=== PATIENT | female | born 1955 | race Caucasian/White ===

== ENCOUNTER 2021-01-04 08:33 | Inpatient (IN) ==
--- NOTE | 2020-12-29 10:33 | PAT Medication Instructions ---
Medication Instructions Date of Service December 29, 2020 Home Medications acetaminophen [Tylenol Extra Strength] 1,000 mg PO Q8H PRN [id number] [Fioricet] 1 tab PO Q6H PRN duloxetine [Cymbalta] 60 mg PO QAM ezetimibe [Zetia] 10 mg PO QAM famotidine 20 mg PO BID levothyroxine 88 mcg PO UD pregabalin [Lyrica] 50 mg PO BID zolpidem [Ambien CR] 12.5 mg PO HS DO NOT take the morning of surgery [id number]-[id number] [Fioricet] 1 tab PO Q6H PRN Take morning of surgery With a small sip of water, OTHERWISE NOTHING TO EAT OR DRINK AFTER MIDNIGHT: acetaminophen [Tylenol Extra Strength] 1,000 mg PO Q8H PRN (if needed, may be taken up to four hours before surgery) duloxetine [Cymbalta] 60 mg PO QAM ezetimibe [Zetia] 10 mg PO QAM famotidine 20 mg PO BID levothyroxine 88 mcg PO UD pregabalin [Lyrica] 50 mg PO BID Take evening before surgery acetaminophen [Tylenol Extra Strength] 1,000 mg PO Q8H PRN (if needed) [id number] [Fioricet] 1 tab PO Q6H PRN (if needed) famotidine 20 mg PO BID pregabalin [Lyrica] 50 mg PO BID zolpidem [Ambien CR] 12.5 mg PO HS Other Notes If you have any questions please call us at [phone] or [phone] or [phone] or [phone]
--- NOTE | 2020-12-30 11:30 | Anesthesiology Consultation ---
Date of Service December 30, 2020 Assessment & Plan (1) Encounter for pre-operative examination: COVID Status: As of 12/30 assessment, patient denies travel to endemic area, known exposure/sick contacts, or symptoms of COVID19. Patient instructed that they and their household members must follow strict social distancing guidelines, wear a mask in public and avoid travel/events/gatherings for 14 days prior to surgery. Preoperative COVID19 testing completed 12/30 at [facility] [place] Patient made aware to self-isolate as much as possible between COVID testing and surgery. Patient is fully vaccinated. Chart Review Chart Review: Acceptable Risk for Surgery (pending surgeon ordered PCP clearance) and Patient seen in Pre Admission Testing Teaching & Discussion Instructed NPO after midnight before surgery, except medications with 15 cc of water. Medication instructions provided according to the PAT guidelines. History Surgery Operation Date: 01/04/21 13:40 Proposed Procedures p Right Total Knee Arthroplasty - Baldomero Mason DO Height/Weight Height: 5 ft Weight: 67.7 kg Allergies Allergy/AdvReac Type Severity Reaction Status Date / Time carbamazepine [From Tegretol] Allergy Intermediate Hives Verified 12/15/20 14:33 Penicillins Allergy Intermediate Hives Verified 12/15/20 14:33 Medications Home Medications Medication Instructions Recorded Confirmed Last Taken acetaminophen [Tylenol Extra 1,000 mg PO Q8H PRN 12/15/20 12/15/20 Unknown Strength] [id number]-zijnmyoqgexsm-updh 1 tab PO Q6H PRN 12/15/20 12/15/20 Unknown [Fioricet] duloxetine [Cymbalta] 60 mg PO QAM 12/15/20 12/15/20 Unknown ezetimibe [Zetia] 10 mg PO QAM 12/15/20 12/15/20 Unknown famotidine 20 mg PO BID 12/15/20 12/15/20 Unknown levothyroxine 88 mcg PO UD 12/15/20 12/15/20 Unknown pregabalin [Lyrica] 50 mg PO BID 12/15/20 12/15/20 Unknown zolpidem [Ambien CR] 12.5 mg PO HS 12/15/20 12/15/20 Unknown Past Medical History Medical History (Updated 12/30/20 @ 11:33 by Syd Feldman) Fibromyalgia GERD (gastroesophageal reflux disease) History of kidney cancer s/p L nephrectomy Hyperlipidemia Hypothyroidism Lumbar herniated disc Migraine Optic neuritis BOTH EYES Osteoarthritis Sciatica RT AND LEFT SIDE Spinal stenosis Trigeminal neuralgia Exercise / Class Metabolic Activity II 4-5 Yardwork/Stairs/Walk up hill Past Family History Family History (Updated 12/15/20 @ 14:47 by Amira Hernandez RN) Sister Family history of diabetes mellitus Brother Family history of diabetes mellitus Past Surgical History Surgical History (Updated 12/30/20 @ 11:23 by Syd Feldman) Abdominal lump REMOVED (SCAR TISSUE FROM NEPHRECTOMY AND HYSTERECTOMY) VIA EXPLORATORY LAPAROSCOPY Family history of reaction to anesthesia SON-NAUSEA History of appendectomy History of colonoscopy History of esophagogastroduodenoscopy (EGD) History of left nephrectomy due to malignancy History of repair of rotator cuff LEFT History of tooth extraction Hx of breast reduction, elective Hx of lumbar discectomy Hx of total hysterectomy Nausea and vomiting after administration of anesthetic agent Past Anesthesia History No Hx of Anesthesia Complications (other than PONV) and No Family Hx of Anes thesia Complications (other than PONV) History of PONV History of PONV and Hx of Motion Sickness Social History Smoking Status: Never smoker Do You Dip or Chew Tobacco: No Hx Alcohol Use: No Hx Substance Use: No Review of Systems Pt denies any recent chest pain, shortness of breath, palpitations, cough, fever, URI. +reflux daily despite Pepcid Physical Exam Vital Signs BP: 111/71 P: 61bpm SPO2: 99% RA T: 97.7 F R: 16 ENMT Mouth: no dental restorations, no chipped teeth and no loose teeth Thyromental Distance: > or= 3.5 Finger Breadths (3.5) Mallampati Class: III Pt has chronically "sore" teeth and gums from trigeminal neuralgia. Neck normal visual inspection and + limited neck extension (pain with moderate extension) Respiratory normal respiratory effort, lungs clear to auscultation Cardiovascular RRR, no murmur, no edema Testing Laboratory Results 12/30/20 11:09 12/30/20 11:09 PT 9.5 Seconds (9.0-12.0) 12/30/20 11:09 INR 0.9 (0.9-1.1) 12/30/20 11:09 APTT 23.6 Seconds (21.0-31.0) 12/30/20 11:09 Hemoglobin A1c 5.8 % (4.5-5.6) H 12/30/20 11:09 Urine Color Yellow 12/30/20 11:09 Urine Appearance Clear (Clear) 12/30/20 11:09 Urine pH 6.0 (4.5-7.5) 12/30/20 11:09 Ur Specific [place] 1.012 (1.000-1.030) 12/30/20 11:09 Urine Protein Negative (Negative) 12/30/20 11:09 Urine Glucose (UA) Negative (Negative) 12/30/20 11:09 Urine Ketones Negative (Negative) 12/30/20 11:09 Urine Nitrite Negative (Negative) 12/30/20 11:09 Ur Leukocyte Esterase Trace (Negative) H 12/30/20 11:09 Urine WBC (Auto) 0 /hpf (0-5) 12/30/20 11:09 Urine RBC (Auto) 0-4 /hpf (0-4) 12/30/20 11:09 U Hyaline Cast (Auto) 1-5 /lpf (0-5) 12/30/20 11:09 U Epithel Cells (Auto) 5-10 /lpf (0-5) H 12/30/20 11:09 Urine Bacteria (Auto) Negative (Negative) 12/30/20 11:09 Blood Type A Positive 12/30/20 11:09 Antibody Screen NEGATIVE 12/30/20 11:09 Electrocardiogram Date: 12/30/20 Findings: + SB @ (59bpm) Chest X-Ray Date: 12/30/20 Findings: + NAD
[2020-12-30 11:42] LABS: Basophils # (auto) 0.07 K/uL (0-0.2); Basophils % (auto) 1.4 %; Eosinophils # (auto) 0.26 K/uL (0-0.5); Eosinophils % (auto) 5.2 %; Hematocrit (blood only) 39.6 % (37-47); Hemoglobin 12.8 g/dL (12.0-16.0); Immature Granulocytes # (auto) 0.01 K/uL (0.00-0.02); Immature Granulocytes % (auto) 0.2 %; Mean Corpuscular Hgb Conc 32.3 g/dL (32-36); Mean Corpuscular Volume 89.6 fL (80-100); Mean Platelet Volume 10.1 fL (7.4-10.4); Monocytes # (auto) 0.39 K/uL (0.11-0.59); Monocytes % (auto) 7.8 %; Neutrophils # (auto) 2.47 K/uL (1.4-6.5); Neutrophils % (auto) 49.4 %; Platelet Count 231 K/uL (130-400); RDW Coefficient of Variation 13.7 % (11.5-14.5); RDW Standard Deviation 45.2 fL (36.4-46.3); Red Blood Count 4.42 M/uL (4.2-5.4)
[2020-12-30 11:48] LABS: Appearance Urine Clear (Clear); Bacteria Urine Automated Negative (Negative); Bilirubin Urine Negative (Negative); Blood Urine Negative (Negative); Color Urine Yellow; Glucose Urine UA Negative (Negative); Ketones Urine Negative (Negative); Leukocyte Esterase Urine Trace (Negative); Nitrite Urine Negative (Negative); Protein Urine Negative (Negative); RBC Urine Automated 0-4 /hpf (0-4); Specific Gravity Urine 1.012 (1.000-1.030); Urobilinogen Urine Negative (Negative); WBC Urine Automated 0 /hpf (0-5)
[2020-12-30 11:51] LABS: Estimated Average Glucose 120 mg/dl; Hemoglobin A1C 5.8 % (4.5-5.6)
[2020-12-30 12:15] LABS: INR 0.9 (0.9-1.1); Partial Thromboplastin Ratio 0.9; Partial Thromboplastin Time 23.6 Seconds (21.0-31.0); Prothrombin Time 9.5 Seconds (9.0-12.0)
--- NOTE | 2020-12-30 12:15 | XRay Report ---
XR chest Pre-admission PA/Lat HISTORY: Preop. COMPARISON: None. FINDINGS: The lungs are clear. Cardiac silhouette is normal in size. No pleural effusions. No pneumot horax. Prior cholecystectomy. IMPRESSION: No acute process. ACT 112: Negative or not required by law. Electronically signed by: Ken Way M.D. 12/30/2020 12:14 PM
[2020-12-30 12:49] LABS: Albumin Level 3.4 gm/dl (3.4-5.0); BUN Creatinine Ratio 19.4 (10-20); Calcium 8.6 mg/dl (8.5-10.1); Est GFR (African American) 73.9; Est GFR (Non-African American) 63.7; Potassium 4.1 mmol/L (3.5-5.1)
--- NOTE | 2020-12-30 13:56 | Electrocardiogram Report ---
Test Reason : Blood Pressure : / mmHG Vent. Rate : 059 BPM Atrial Rate : 059 BPM P-R Int : 174 ms QRS Dur : 076 ms QT Int : 438 ms P-R-T Axes : 065 061 079 degrees QTc Int : 433 ms Sinus bradycardia Otherwise normal ECG No previous ECGs available Confirmed by Jose Carlos Vazquez ([id number]) on 12/30/2020 1:56:22 PM Referred By: Baldomero Mason Confirmed By:Haroldo Vazquez
--- NOTE | 2021-01-02 08:38 | History & Physical Report ---
Date of Service January 04, 2021 Assessment & Plan (1) Degenerative joint disease of knee, right: I have indicated the patient for right total knee replacement. The risks, benefits and complications of surgery were explained to the patient which include but not limited to infection, acute blood loss, DVT/PE, injury to nerves, vessels, bone, soft tissue, arthrofibrosis, chronic pain, failure of the prosthesis, knee dislocation, leg length discrepancy, need for additional surgery, cardiac and pulmonary events and . The patient wished to proceed with surgery and informed consent was obtained at this time. We will plan for 81mg ASA BID post-operatively for DVT prophylaxis. Upon discharge the patient will be discharged home with home health services. Appropriate clearances by PC P were obtained. The patient is asymptomatic for UTI. History of Present Illness Chief Complaint: Right knee pain/DJD Primary Care Provider: Vasu Brewster The patient is a 65 year old female who presents with complaints of severe right knee pain and DJD. The patient has failed outpatient conservative treatments to this point which included NSAIDs, IA corticosteroid injection, home exercise/walking program. The patient's pain and limited function have progressed to the point where they severely hinder their activities of daily living and they no longer tolerate exercise programs. They are requesting to proceed with total knee replacement surgery. Allergies Allergy/AdvReac Type Severity Reaction Status Date / Time carbamazepine [From Tegretol] Allergy Intermediate Hives Verified 01/04/21 09:11 Penicillins Allergy Intermediate Hives Verified 01/04/21 09:11 Home Medications Medication Instructions Recorded Confirmed Type acetaminophen [Tylenol Extra 1,000 mg PO Q8H PRN 12/15/20 12/15/20 History Strength] [id number]-skkkpcglzbzdk-yclc 1 tab PO Q6H PRN 12/15/20 12/15/20 History [Fioricet] duloxetine [Cymbalta] 60 mg PO QAM 12/15/20 12/15/20 History ezetimibe [Zetia] 10 mg PO QAM 12/15/20 12/15/20 History famotidine 20 mg PO BID 12/15/20 12/15/20 History levothyroxine 88 mcg PO UD 12/15/20 12/15/20 History pregabalin [Lyrica] 50 mg PO BID 12/15/20 12/15/20 History zolpidem [Ambien CR] 12.5 mg PO HS 12/15/20 12/15/20 History Past Med/Surg History Medical History Fibromyalgia GERD (gastroesophageal reflux disease) History of kidney cancer s/p L nephrectomy Hyperlipidemia Hypothyroidism Lumbar herniated disc Migraine Optic neuritis BOTH EYES Osteoarthritis Sciatica RT AND LEFT SIDE Spinal stenosis Trigeminal neuralgia Surgical History Abdominal lump REMOVED (SCAR TISSUE FROM NEPHRECTOMY AND HYSTERECTOMY) VIA EXPLORATORY LAPAROSCOPY Family history of reaction to anesthesia SON-NAUSEA History of appendectomy History of colonoscopy History of esophagogastroduodenoscopy (EGD) History of left nephrectomy due to malignancy History of repair of rotator cuff LEFT History of tooth extraction Hx of breast reduction, elective Hx of lumbar discectomy Hx of total hysterectomy Nausea and vomiting after administration of anesthetic agent Family History Sister Family history of diabetes mellitus Brother Family history of diabetes mellitus Social History Smoking Status: Never smoker Second Hand Exposure: No; Do You Dip or Chew Tobacco: No; Hx Alcohol Use: No Hx Substance Use: No Preferred Language: Citizen Of [place] Lamination Inspector Required: No Beliefs That Will Affect Care: None Current Living Situation: Spouse Feels Safe at Home: Yes Safety Concerns: Feels Safe At This Time Assistive Devices: Glasses Review of Systems Review of Systems: All systems reviewed & are unremarkable except as noted in HPI & below Constitutional: as per Subjective / HPI Physical Exam Physical Exam: RLE NVSI +EHL/FHL/TA/GS SILT grossly, +2 DP pulse, compartments soft NT, limited painful ROM, 0-110 degrees, +crepitus Constitutional: WD/WN, vitals as above Eyes: PERRL, conjunctivae normal, anicteric sclerae ENMT: external ear and nose normal, oropharynx normal Neck: trachea midline, no thyromegaly Respiratory: normal respiratory effort, lungs clear to auscultation Cardiovascular: RRR, no murmur, no edema Gastrointestinal (Abdomen): normal bowel sounds, soft, nontender, no hepatosplenomegaly Musculoskeletal: no cyanosis or clubbing, extremities motor strength 5/5 Skin: no rashes, warm and dry Neurologic: patellar DTR's 2+ bilat, sensation intact Psychiatric: A+Ox3, euthymic affect Lymphatic: no cervical or axillary lymphadenopathy Results & Data Results & Data ([facility]) Diagnostic Findings Multiple views of the knee demonstrates severe tricompartmental DJD with c omplete loss of the medial joint space. +osteophytes, +sclerosis, +subchondral cysts. Pre Admission Testing Addendum Laboratory Results 12/30/20 11:09 12/30/20 11:09 PT 9.5 Seconds (9.0-12.0) 12/30/20 11:09 INR 0.9 (0.9-1.1) 12/30/20 11:09 APTT 23.6 Seconds (21.0-31.0) 12/30/20 11:09 Hemoglobin A1c 5.8 % (4.5-5.6) H 12/30/20 11:09 Urine Color Yellow 12/30/20 11:09 Urine Appearance Clear (Clear) 12/30/20 11:09 Urine pH 6.0 (4.5-7.5) 12/30/20 11:09 Ur Specific [place] 1.012 (1.000-1.030) 12/30/20 11:09 Urine Protein Negative (Negative) 12/30/20 11:09 Urine Glucose (UA) Negative (Negative) 12/30/20 11:09 Urine Ketones Negative (Negative) 12/30/20 11:09 Urine Nitrite Negative (Negative) 12/30/20 11:09 Ur Leukocyte Esterase Trace (Negative) H 12/30/20 11:09 Urine WBC (Auto) 0 /hpf (0-5) 12/30/20 11:09 Urine RBC (Auto) 0-4 /hpf (0-4) 12/30/20 11:09 U Hyaline Cast (Auto) 1-5 /lpf (0-5) 12/30/20 11:09 U Epithel Cells (Auto) 5-10 /lpf (0-5) H 12/30/20 11:09 Urine Bacteria (Auto) Negative (Negative) 12/30/20 11:09 Blood Type A Positive 12/30/20 11:09 Antibody Screen NEGATIVE 12/30/20 11:09 03/24/21 11:09 Urine Culture - Final Urine,Clean Catch More than three types of organisms present, all moderate counts mixed probable skin shonna. No further identifications or sensitivities to follow.
[~2021-01-04 08:33] MED LIST: ACETAMINOPHEN 500 MG TAB PO SCH; BUPIVACAINE 0.5 % 5 MG/1 ML PF 10ML VIAL ONE; CLINDAMYCIN 600 MG/54 ML BAG IV SCH; CeleBREX 200 MG CAP PO SCH; FAMOTIDINE 20 MG TAB PO SCH; LR 500ML BOLUS, THEN 15ML/HR IV SCH; METOCLOPRAMIDE HCL 10 MG TABLET PO SCH; ROPIVACAINE 0.5% 5 MG/ML 30 ML VIAL ONE; ROPIVACAINE 0.5% HCL/PF 150 MG, BUPIVACAINE 0.75% MPF 20 ML, EPINEPHrine 30MG/30ML (OR ... INFIL SCH; TRANEXAMIC ACID 1,000 MG **IV Intra-op IV SCH; TRANEXAMIC ACID 1,000 MG **IV Pre-op IV SCH; dexAMETHasone 4 MG TAB PO SCH
--- NOTE | 2021-01-04 09:15 | History & Physical Bridge Note ---
Date of Service January 04, 2021 History & Physical Bridge Note I have examined the patient, reviewed the History & Physical and in the interval since the performance of the History & Physical I have noted the following changes of clinical significance: no changes noted
[2021-01-04] MEDS ORDERED: CLINDAMYCIN 600 MG/54 ML D5W IV ONE (09:23)
[2021-01-04] MEDS ORDERED: fentaNYL citrate 100 MCG/2 ML VIAL ONE (09:26)
[2021-01-04] MEDS ORDERED: MIDAZOLAM HCL 1 MG/ML 2ML VIAL ONE ×2 (09:26→10:51)
[2021-01-04] MEDS ORDERED: HYDROmorphone INJ 2 MG/ML SYR/VIAL IV PRN (10:23)
[2021-01-04] MEDS ORDERED: ePHEDrine sulfate 50 MG/ML AMP IV PRN (10:23)
[2021-01-04] MEDS ORDERED: ONDANSETRON INJ 2 MG/ML 2 ML VIAL IV PRN ×2 (10:23→15:42)
[2021-01-04] MEDS ORDERED: fentaNYL citrate 100 MCG/2 ML VIAL IV PRN (10:23)
[2021-01-04] MEDS ORDERED: ATROPINE SULFATE 0.1 MG/ML 10ML SYR IV PRN (10:23)
[2021-01-04] MEDS ORDERED: BACITRACIN INJ 50,000 UNIT VIAL ONE (10:47)
[2021-01-04] MEDS ORDERED: ORTHO JOINT ANESTHETIC ONE (10:47)
[2021-01-04] MEDS ORDERED: LIDOCAINE HCL 2% 2 ML VIAL/AMP(20MG/ML) INFIL ONE (11:09)
[2021-01-04] MEDS ORDERED: PROPOFOL IV EMULSION 10 MG/ML 20 ML VIAL IV ONE (11:09)
[2021-01-04] MEDS ORDERED: ONDANSETRON INJ 2 MG/ML 2 ML VIAL ONE (11:09)
[2021-01-04] MEDS ORDERED: ePHEDrine sulfate 50 MG/ML SYR ONE (11:14)
[2021-01-04] MEDS ORDERED: KETAMINE 50 MG/5 ML SYRINGE ONE (11:17)
[2021-01-04] MEDS ORDERED: PHENYLEPHRINE 100MCG/ML 5ML SYR ONE (11:25)
--- NOTE | 2021-01-04 12:16 | Post Operative Brief Note ---
Immediate Post Op Note v1 Date of Surgery January 04, 2021 Pre & Post Diagnosis Operation Date: 01/04/21 11:00 Pre-Op Diagnosis: Unilateral Primary Osteoarthritis Knee Right Post-Op Diagnosis: Unilateral Primary Osteoarthritis Knee Right I identified the patient and participated in the time-out.: Yes Procedure Operation Date: 01/04/21 11:00 Actual Procedures p Right Total Knee Arthroplasty(Right) - Baldomero Mason DO Surgeon Baldomero Mason DO Gasoline Engine Inspector Ghassan Waggoner Estimated Blood Loss 75 Findings Consistent with Post-Op Diagnosis Fluids See anesthesia report Specimens Proximal tibia and distal femur bone fragments Anesthesia Type Spinal MAC Complications none Disposition Disposition: Recovery Room Overlapping Procedure I was present for: the critical portions of procedure. I was immediately available: during the entire case. Back up surgeon: was not required during procedure.
--- NOTE | 2021-01-04 12:18 | Operative Report ---
Post Operative Report Pre & Post Diagnosis Operation Date: 01/04/21 11:00 Pre-Op Diagnosis: Unilateral Primary Osteoarthritis Knee Right Post-Op Diagnosis: Unilateral Primary Osteoarthritis Knee Right I identified the patient and participated in the time-out.: Yes Procedure Operation Date: 01/04/21 11:00 Actual Procedures p Right Total Knee Arthroplasty(Right) - Baldomero Mason DO Surgeon Baldomero Mason, Optical Model Maker And Tester Ghassan Waggoner Estimated Blood Loss 75 Findings Consistent with Post-Op Diagnosis Fluids See anesthesia report Specimens Proximal tibia and distal femur bone fragment Anesthesia Type Spinal MAC Disposition Disposition: Recovery Room Indications The patient is a 62-year-old female presents with long history of severe right knee tricompartmental DJD and failed outpatient conservative treatments including NSAIDs, bracing, injections and home walking/exercise program. The patient's symptoms have progressed to the point where it has been difficult to perform normal activities of daily living. I have indicated the patient for a right total knee arthroplasty, the risks and benefits and complications of the procedure include but are not limited to infection bleeding damage to bone, nerves, vessels, surrounding soft tissue, blood clots, loss of function, leg length discrepancy, dislocation, failure of the components, need for additional surgery and . The patient wished to proceed with surgery at this time and informed consent was obtained. Appropriate clearances were obtained. Description of Procedure COMPONENTS USED: Sandra [employer]omet knee system: Femur size 5 narrow, Tibia size C, Tibial articulating surface 10 PS, Patella 29 Following induction of spinal anesthesia, a tourniquet was applied to the proximal aspect of the thigh and the patient's right leg was prepped and draped in the usual sterile manner. A timeout was performed, patient identified and site michael confirmed. Appropriate pre-operative IV antibiotics were given. The limb was exsanguinated with an Esmarch bandage and tourniquet was inflated to 300 mmHg. A longitudinal midline incision was made over the anterior knee. Subcutaneous tissue was sharply dissected down to fascia. Electrocautery was used for hemostasis. Next a parapatellar arthrotomy was performed. Patella was everted and the knee was flexed. A Riley retractor was used to expose the synovium above on the anterior aspect of the femur and removed down to bone. Next, the anterior fat pad was removed to aid in visualization. The medial face of the tibia was cleared of soft tissue first with a Bovie and a frank elevator. This tissue was retracted posteriorly using a blunt Hohmann. Next, the extra-medullary tibial cutting guide was placed to the anterior aspect of the tibia. The tibia resection level was set taking 2mm from the defective tibial condyle. Resection depth was once again confirmed with noel wing. The medial and lateral collateral ligament was protected with two Hohmann retractors. The tibia guide was removed and proximal tibial bone fragment removed utilizing straight osteotome, electrocautery and Taylor. Next, the distal femur intramedullary canal was accessed utilizing the step drill. The intramedullary distal femur cutting guide was placed into the canal and pinned into place. The distal femur was cut on the 5 degree setting. Next the cutting guide was removed and the femur was sized. Care was taken to ensure appropriate sandwich counter attendant all rotation and 3 degree holes were drilled. A size 5 4-in-1 cutting block was placed on the distal end of the femur and secured into place with two short headed screws. Two bent Hohmann retractors were placed to protect the medial and lateral collateral ligaments. The oscillating saw was used to cut anterior, posterior, anterior chamfer and posterior chamfer. The four and one cutting block was removed and bone fragments excised. Laminar belt line feeder was placed laterally and the ACL and PCL were removed followed by the medial meniscus and posterior medial osteophytes. Aquamantys was utilized for any posterior medial bleeders and Orthomix injected into the po sterior medial capsule. A laminar belt line feeder was then placed in the medial compartment and the lateral meniscus and posterior osteophytes were removed. Aquamantys was utilized for any posterior lateral bleeders and Orthomix injected into the posterior lateral capsule. Next, drop allen and spacer block were placed with the leg in flexion and extension to assess alignment and flexion/extension gaps. Next, the proximal tibia was assessed and two bent Hohmans were placed medial and lateral to aid in visualization. The appropriate tibia size and rotation was selected and a size C tibial plate was pinned into place with appropriate rotation. Preparation of the tibia was completed utilizing the matching tibial drill and broach. I then turned my attention back to the distal femur in a trial femoral component was impacted into place. Appropriate femoral width was assessed and selected. Next the femur PS box cut guide was placed and cut made with the reciprocal saw and the PS box provisional placed. A trial size 10 PS tibia articular tray was placed and varus-valgus balance assessed in 0 degrees of extension and 30, 60 and 90 degrees of flexion. A final tibial articular surface size 10 PS was chosen. Assess was gained to the patella and caliper utilized to measure width. The patella reamer was utilized and remaining bone removed with oscillating saw. A size 29 mm patella button was selected and the patella pegs drilled. Trial patella button was placed and tracking was assessed. The knee was found to be well balanced, well aligned with excellent patella tracking. The trials were removed and final components were obtained and assembled. The knee was irrigated copiously with sterile saline solution mixed with bacitracin. Access to the proximal tibia was once again obtained utilizing to the Hohmans and the proximal tibia and distal femur were dried with lap sponges. The final components were cemented into place and all excess cement was removed. A trial tibial articular surface was placed while cemented hardened. Knee stability was once again assessed and the final component inserted. A Betadine soak was performed. After 3 minutes, the knee was once more irrigated with copious sterile saline solution with bacitracin. The knee was injected with the remaining Orthomix which includes a combination of Ropivicaine 0.5% 150mg, Bupivicaine 0.5%/Epinephrine 1:200,000 30ml, Toradol 30mg, Dexamethasone 4mg, Ketamine 10mg, Clonidine 100mcg and NSS 30ml solution. The capsulotomy was closed with #1 Vicryl followed by subcutaneous closure with 2-0 Vicryl suture and the skin was closed with alexander. A sterile dry dressing was applied which included pankaj incisional VAC, web roll and Ignacio wrap. Tourniquet was deflated at 73 minutes. The patient tolerated the procedure well and was taken to the PACU in stable condition. Due to the complex nature of the procedure, the entire surgery was performed with the operational assistance of Ghassan Waggoner PA-C. The after school program assistant, under direct supervision, was involved in the actual performance of all aspects of the surgical procedure including patient positioning, hemostasis, tissue retraction, instrument management and wound closure. I attest to the content of the Intraoperative Record and any orders documented therein. Any exceptions are noted below.
--- NOTE | 2021-01-04 13:45 | XRay Report ---
RIGHT KNEE 2 VIEWS History: Right total knee arthroplasty. Degenerative arthritis. Postop. FINDINGS: The patient is status post a right total knee arthroplasty. The hardware is intact. No frac ture or dislocation. Skin alexander are in place. IMPRESSION: Right total knee arthroplasty. No evidence for hardware complication. ACT 112: Negative or not required by law. Electronically signed by: Ken Way M.D. 01/04/2021 1:44 PM
--- NOTE | 2021-01-04 14:02 | Anesthesiology Progress Note ---
Date of Service January 04, 2021 Anesthesia Post Procedure Vital Signs Vital Signs: Temp Pulse Pulse Resp BP Pulse Ox 01/04/21 14:00 68 14 100/50 L 93 01/04/21 13:45 63 15 107/63 94 01/04/21 13:30 68 20 108/61 94 01/04/21 13:20 36.6 C 73 19 98/64 L 94 01/04/21 13:10 36.6 C 80 18 94/55 L 93 01/04/21 13:00 73 20 96/57 L 96 01/04/21 12:50 82 16 103/58 L 97 01/04/21 12:44 36.6 C 82 16 107/55 L 95 01/04/21 10:05 36.8 C 64 18 121/69 97 01/04/21 09:03 36.8 C 61 18 126/69 98 Pain Intensity Right Knee: Pain Intensity: 0 Transfer of Care Handoff Completed per policy Notes Mental Status: alert / awake / arousable and participated in evaluation Patient Amnestic to Procedure: Yes Nausea / Vomiting: adequately controlled Pain: adequately controlled Airway Patency, RR, SpO2: stable & adequate BP & HR: stable & adequate Hydration State: stable & adequate Neuraxial Anesthesia: was administered and sensory block is resolving Anesthetic Complications: no major complications apparent
[2021-01-04] MEDS ORDERED: NALOXONE HCL 0.4 MG/1 ML VIAL/CARP IV PRN (15:42)
[2021-01-04] MEDS ORDERED: diphenhydrAMINE Capsule 25 MG CAP PO PRN (15:42)
[2021-01-04] MEDS ORDERED: METOCLOPRAMIDE HCL INJ 5 MG/ML 2 ML VIAL IV PRN (15:42)
[2021-01-04] MEDS ORDERED: HYDROmorphone INJ 0.5 MG/0.5 ML SYR IV PRN (15:42)
[2021-01-04] MEDS ORDERED: bisacodyL 10 MG SUPP PR PRN (15:42)
[2021-01-04] MEDS ORDERED: MAGNESIUM HYDROXIDE SUSP 30 ML UDC PO PRN (15:42)
[2021-01-04] MEDS ORDERED: BUTALBITAL/ACETAMIN/CAFFEINE TAB PO PRN (15:42)
--- NOTE | 2021-01-04 16:57 | Orthopedic Progress Note ---
Date of Service January 04, 2021 Assessment & Plan (1) Degenerative joint disease of knee, right: Status post right total knee arthroplasty -Clinda x24 -DVT prophylaxis: SCDs, teds, 81 mg ASA twice daily -Weight-bear as tolerated right lower extremity -PT/OT -Postoperative x-ray demonstrates a well aligned well fixed prosthesis without fracture or dislocation -A.m. lab -Discharge planning home with home health Admission and Anticipated Discharge Date Admission Date: January 04, 2021 Subjective Post Operative Progress Note Patient seen sitting up in bed, comfortable, denies complaints, pain well controlled, no acute issues. Review of Systems Review of Systems: All systems reviewed & are unremarkable except as noted in HPI & below Constitutional: as per Subjective / HPI Physical Exam Physical Exam: Limited physical exam right lower extremity secondary to spinal anesthesia, +2 dorsalis pedis pulse, compartment soft nontender, dressing clean dry and intact Constitutional: WD/WN, vitals as above Results & Data ([place]) Vital Signs (Past 12 Hours) Vital Signs Temp Pulse Pulse Resp BP Pulse Ox 01/04/21 16:30 36.5 C 61 16 120/74 95 01/04/21 16:05 36.4 C L 62 16 114/71 95 01/04/21 15:30 36.5 C 64 18 98/57 L 94 01/04/21 15:15 36.6 C 62 21 114/59 L 95 01/04/21 15:00 36.6 C 62 18 118/59 L 94 01/04/21 14:45 61 23 111/57 L 94 01/04/21 14:30 67 25 H 112/88 95 01/04/21 14:15 65 17 107/69 94 01/04/21 14:00 68 14 100/50 L 93 01/04/21 13:45 63 15 107/63 94 01/04/21 13:30 68 20 108/61 94 01/04/21 13:20 36.6 C 73 19 98/64 L 94 01/04/21 13:10 36.6 C 80 18 94/55 L 93 01/04/21 13:00 73 20 96/57 L 96 01/04/21 12:50 82 16 103/58 L 97 01/04/21 12:44 36.6 C 82 16 107/55 L 95 01/04/21 10:05 36.8 C 64 18 121/69 97 01/04/21 09:03 36.8 C 61 18 126/69 98
[2021-01-04] MEDS: SODIUM CHLORIDE 0.9% 1000ML 1,000 ML IV SCH ×2 (17:01→20:22)
[2021-01-04] MEDS: ACETAMINOPHEN 500 MG TAB PO SCH ×2 (17:33→21:48)
[2021-01-04] MEDS: CLINDAMYCIN 600 MG in DEXTROSE 5% 50 ML IV SCH (20:21)
[2021-01-04] MEDS ORDERED: ZOLPIDEM PO SCH (21:00)
[2021-01-04] MEDS ORDERED: SENNA 8.6 MG TAB PO SCH (21:00)
[2021-01-04] MEDS: FAMOTIDINE 20 MG TAB PO SCH (21:47)
[2021-01-04] MEDS: DOCUSATE SODIUM 100 MG CAP PO SCH (21:47)
[2021-01-04] MEDS: PREGABALIN 50 MG CAP PO SCH (21:47)
[2021-01-05] MEDS: SODIUM CHLORIDE 0.9% 1000ML 1,000 ML IV SCH (03:01)
[2021-01-05] MEDS: CLINDAMYCIN 600 MG in DEXTROSE 5% 50 ML IV SCH (03:01)
[2021-01-05] MEDS: ACETAMINOPHEN 500 MG TAB PO SCH (05:56)
[2021-01-05] MEDS ORDERED: LEVOTHYROXINE SODIUM 88 MCG TABLET PO SCH (06:30)
[2021-01-05 07:07] LABS: Hemoglobin 11.6 g/dL (12.0-16.0); Mean Corpuscular Hemoglobin 30.1 pg (25-34); Mean Corpuscular Hgb Conc 34.1 g/dL (32-36); Mean Corpuscular Volume 88.3 fL (80-100); Mean Platelet Volume 9.4 fL (7.4-10.4); Platelet Count 253 K/uL (130-400); RDW Coefficient of Variation 13.6 % (11.5-14.5); RDW Standard Deviation 43.7 fL (36.4-46.3); Red Blood Count 3.85 M/uL (4.2-5.4)
--- NOTE | 2021-01-05 07:09 | Orthopedic Progress Note ---
Date of Service January 05, 2021 Assessment & Plan (1) Degenerative joint disease of knee, right: Status post right total knee arthroplasty POD#1 -Clinda x24 -DVT prophylaxis: SCDs, teds, 81 mg ASA twice daily -Weight-bear as tolerated right lower extremity -PT/OT -Postoperative x-ray demonstrates a well aligned well fixed prosthesis without fracture or dislocation -A.m. lab- as above, hgb 11.6 -Discharge planning home with home health Admission and Anticipated Discharge Date Admission Date: January 04, 2021 Subjective Post Operative Progress Note Patient seen sitting up in bed, comfortable, denies complaints, pain well controlled, no acute issues. Denies F/C/N/V/SOB/CP. Review of Systems Review of Systems: All systems reviewed & are unremarkable except as noted in HPI & below Constitutional: as per Subjective / HPI Physical Exam Physical Exam: RLE NVSI +EHL/FHL/TA/GS SILT grossly, +2 DP pulse, compartments soft NT, dressing cdi. Constitutional: WD/WN, vitals as above Results & Data ([facility]) Vital Signs (Past 12 Hours) Vital Signs Temp Pulse Resp BP Pulse Ox 01/05/21 03:26 36.5 C 65 16 99/64 L 97 01/04/21 21:53 36.3 C L 59 L 16 106/62 95 Laboratory Results 01/05/21 01/05/21 Range/Units 06:54 06:54 WBC 10.30 (4.8-10.8) K/uL RBC 3.85 L (4.2-5.4) M/uL Hgb 11.6 L (12.0-16.0) g/dL Hct 34.0 L (37-47) % MCV 88.3 (80-100) fL MCH 30.1 (25-34) pg MCHC 34.1 (32-36) g/dL RDW Std Deviation 43.7 (36.4-46.3) fL RDW Coeff of Rj 13.6 (11.5-14.5) % Plt Count 253 (130-400) K/uL MPV 9.4 (7.4-10.4) fL Sodium Pending Potassium Pending Chloride Pending Carbon Dioxide Pending Anion Gap Pending BUN Pending Creatinine Pending Est Cr Clr Drug Dosing Pending Est GFR ( Amer) Pending Est GFR (Non-Af Amer) Pending BUN/Creatinine Ratio Pending Glucose Pending Calcium Pending
[2021-01-05 07:43] LABS: BUN Creatinine Ratio 18.2 (10-20); Calcium 8.5 mg/dl (8.5-10.1); Creatinine Clr Calc Pharmacy 52.1 ml/min; Est GFR (African American) 73.9; Est GFR (Non-African American) 63.7; Potassium 4.2 mmol/L (3.5-5.1)
--- NOTE | 2021-01-05 08:10 | Anesthesiology Progress Note ---
Date of Service January 05, 2021 Anesthesia Post Procedure Vital Signs Vital Signs: Temp Pulse Pulse Resp BP Pulse Ox 01/05/21 03:26 36.5 C 65 16 99/64 L 97 01/04/21 21:53 36.3 C L 59 L 16 106/62 95 01/04/21 18:30 36.3 C L 69 16 109/67 93 01/04/21 17:29 68 16 114/67 96 01/04/21 16:30 36.5 C 61 16 120/74 95 01/04/21 16:05 36.4 C L 62 16 114/71 95 01/04/21 15:30 36.5 C 64 18 98/57 L 94 01/04/21 15:15 36.6 C 62 21 114/59 L 95 01/04/21 15:00 36.6 C 62 18 118/59 L 94 01/04/21 14:45 61 23 111/57 L 94 01/04/21 14:30 67 25 H 112/88 95 01/04/21 14:15 65 17 107/69 94 01/04/21 14:00 68 14 100/50 L 93 01/04/21 13:45 63 15 107/63 94 01/04/21 13:30 68 20 108/61 94 01/04/21 13:20 36.6 C 73 19 98/64 L 94 01/04/21 13:10 36.6 C 80 18 94/55 L 93 01/04/21 13:00 73 20 96/57 L 96 01/04/21 12:50 82 16 103/58 L 97 01/04/21 12:44 36.6 C 82 16 107/55 L 95 01/04/21 10:05 36.8 C 64 18 121/69 97 01/04/21 09:03 36.8 C 61 18 126/69 98 Pain Intensity Right Knee: Pain Intensity: 0 Notes Mental Status: alert / awake / arousable Nausea / Vomiting: adequately controlled Pain: adequately controlled Airway Patency, RR, SpO2: stable & adequate BP & HR: stable & adequate Hydration State: stable & adequate Neuraxial Anesthesia: was administered and sensory block resolved Anesthetic Complications: no major complications apparent and Pt Satisfied with anesthetic care
[2021-01-05] MEDS: DOCUSATE SODIUM 100 MG CAP PO SCH (08:47)
[2021-01-05] MEDS: PREGABALIN 50 MG CAP PO SCH (08:47)
[2021-01-05] MEDS: FAMOTIDINE 20 MG TAB PO SCH (08:48)
[2021-01-05] MEDS: oxyCODONE HCL IR 5 MG TAB (IMMEDIATE RELEASE) PO PRN ×2 (08:49→11:47)
[2021-01-05] MEDS ORDERED: DULoxetine HCL 60 MG CAP PO SCH (09:00)
[2021-01-05] MEDS ORDERED: MULTIVITAMIN TAB PO SCH (09:00)
[2021-01-05] MEDS ORDERED: ASPIRIN 81 MG ECTAB PO SCH (09:00)
[2021-01-05] MEDS ORDERED: EZETIMIBE 10 MG TABLET PO SCH (09:00)
--- NOTE | 2021-01-05 21:44 | Discharge Summary ---
Date of Service January 05, 2021 Admission HPI Per Admitting Provider The patient is a 65 year old female who presents with complaints of severe right knee pain and DJD. The patient has failed outpatient conservative treatments to this point which included NSAIDs, IA corticosteroid injection, home exercise/walking program. The patient's pain and limited function have progressed to the point where they severely hinder their activities of daily living and they no longer tolerate exercise programs. They are requesting to proceed with total knee replacement surgery. Principal Diagnosis Right total knee replacement Discharge Exam RLE NVSI +EHL/FHL/TA/GS SILT grossly, +2 DP pulse, compartments soft NT, dressing cdi. Constitutional WD/WN, vitals as above Discharge Data Allergies Allergy/AdvReac Type Severity Reaction Status Date / Time carbamazepine [From Tegretol] Allergy Intermediate Hives Verified 01/04/21 09:11 Penicillins Allergy Intermediate Hives Verified 01/04/21 09:11 Procedures Performed Operation Date: 01/04/21 11:00 Actual Procedures p Right Total Knee Arthroplasty(Right) - Baldomero Mason DO Ordered Studies 01/04/21 05:00 US - OR guided needle placemen Routine Hospital Course (1) Degenerative joint disease of knee, right: The patient is a 65 -year-old female who presents with long standing history of severe right knee DJD and failed outpatient conservative treatments. The patient's symptoms have progressed to the point where it has been difficult to perform even normal activities of daily living. I indicated the patient for a right total knee arthroplasty, the risks, benefits and complications of the procedure include but not limited to infection, bleeding, damage to bone, nerves, vessels, surrounding soft tissue, may develop blood clots, loss of function, leg length discrepancy, dislocation, failure of the components, loosening of the components, the need for additional surgery and . The patient wished to proceed with surgery at this time and informed consent was obtained. Hospital Course: On 01/04/21 the patient was taken to the operating room, adequate anesthesia administered and underwent a right total knee arthroplasty. The patient tolerated the procedure well and was taken to the PACU in stable condition. Post-operatively the patient was started on a DVT ppx medication and given appropriate IV antibiotics. Consults were placed to physical therapy, occupational therapy and case management. On POD#1, the patient did well overnight and their pain was well controlled. Labs were drawn and the Hgb was 11.6. The patient progressed well with PT. Dressings were changed at this time and the incision was clean, dry and intact. The patients hospital stay was relatively uneventful and they were deemed stable by the orthopedic team and consultants to be discharged home with on 01/05/21. Discharge Instructions: Upon discharge the patient may weight bear as tolerates through their operative extremity. They were instructed to keep the incision clean and dry at all times. The patient may shower but should not submerge the incision, avoid bathing, pools and hot tubs. The patient was given a script for pain medication and should take as instructed. The patient was given a script for DVT ppx 81mg ASA BID and should take as directed. The patient was instructed to not drive or travel for long distances until cleared to do so. If the patient develops any symptoms of fevers, chills, nausea, vomiting, increased redness, swelling, pain or drainage from the surgical site, they should notify the office and/or proceed to the nearest emergency room. The patient should follow up in 10-14 days after surgery for their routine post-operative follow-up appointment and should call the office, to confirm the date and time. Status post right total knee arthroplasty POD#1 -Clinda x24 -DVT prophylaxis: SCDs, teds, 81 mg ASA twice daily -Weight-bear as tolerated right lower extremity -PT/OT -Postoperative x-ray demonstrates a well aligned well fixed prosthesis without fracture or dislocation -A.m. lab- as above, hgb 11.6 -Discharge planning home with home health Total Time Total Time Spent Total Time Spent (In Minutes): 30 Discharge Plan Discharge Items Patient Disposition: Home - Home Health Services Reason For Visit: Unilateral Primary Osteoarthritis Knee Right Discharge Diagnosis: Right total knee replacement Condition on Discharge: Good Activity: Per Instructions section Lifting: Wait until after follow-up appointment Bathing: Keep incision dry Bathing Comment: No bathing, pools or hot tubs. Sexual Activity: Wait until after follow-up appointment Exercise/Sports: Wait until after follow-up appointment Driving/Machine Use: No driving. Weightbearing: Full weightbearing Non-emergency contact: Primary Care Provider and Surgeon Call non-emergency contact if: you have any medication questions, your symptoms worsen, your pain is not controlled, your pain is worsening, your pain is unusual for you, your pain is concerning for you, you have a fever, your temperature is above 101, your wound has increased redness, your wound has increased drainage and your wound pain has increased Follow-up/Referrals: Vasu Brewster M.D. [Primary Care Provider] - Diet: Regular Addtl Attending Provider Instructions: ACTIVITY RECOMMENDATIONS: SELF CARE INSTRUCTIONS AFTER TOTAL KNEE REPLACEMENT A. You may need to continue a physical therapy program after discharge from the hospital. There are several options available to you. Your doctor will assist you in selecting the best one for you. 1. An out-patient facility 2 to 3 times a week for therapy or home therapy. 2. Continue working on all exercises taught to you in the hospital. Your goals should be to increase bending of your knee to 90 degrees and beyond and to fully straighten your knee. B. You may progress at your own pace from walking with a walker or crutches to a cane; then to no assistive devices. C. Make walking a part of your daily routine. Be up as much as comfortable with rest periods throughout the day. Rest with leg elevation is very important. Use the ice wrap frequently for the first 3-4 weeks. D. There are no restrictions on activities. You may ride in a car, shop, participate in etcher hand and all social activities. E. Wear the long elastic stockings (RADHA hose) 20 hours a day for 2 weeks after surgery. They can be removed several times a day for laundering and for a bath. F. You may shower, no tub baths until cleared by your doctor. SPECIAL CARE INSTRUCTIONS: VERY IMPORTANT TO READ AND REVIEW A. There are a few signs you need to watch for after you are home. Call [facility] if you notice any of the followin. Increased severe knee pain. Some pain is expected especially when you exercise. 2. Increased swelling in your leg or knee; pain or swelling of the calf muscle in either lower leg. 3. Any fluid drainage from the incision. 4. Shortness of breath or chest pain. B. Please call [facility] at if you have any concerns or questions about your operation or recovery. The doctor or his nurse will return your call promptly. C. You must take antibiotics before dental work, bladder, bowel or other surgery. Your doctor will provide you with a permanent care to carry describing this precaution. IMPORTANT: * REMEMBER TO TAKE ASPIRIN, 81 MG, TWICE DAILY FOR 4 WEEKS UNLESS OTHERWISE DIRECTED. THIS IS YOUR BLOOD THINNER. * HIGH RISK PATIENTS MAY BE PRESCRIBED A STRONGER BLOOD THINNER. THIS WILL BE PROVIDED AT DISCHARGE. * CALL IF INCREASED PAIN, REDNESS, DRAINAGE OR FEVER GREATER THAT 101. * WEAR RADHA HOSE 20 HOURS PER DAY FOR 2 WEEKS. *GILBERTO incisional vac is a special dressing covering your incision. This dressing provides a sterile dry environment while you are healing. The dressing is to be left in place for 7 days post-operatively. Your home nurse or surgeon will remove. If you develop any redness or blisters or have any questions notify your surgeon immediately. FOLLOW UP VISIT: If appointment is not already scheduled: Please call [facility] to make a follow-up appointment for 2 weeks after your surgery at . Pending Studies at Discharge: No Stand-Alone Forms: My [facility] [employer], Opioid Pain Management, Smoking Cessation Medications and DC Order Prescriptions: New aspirin 81 mg Tablet,Delayed Release (Dr/Ec) 81 mg PO BID Qty: 56 RF: 0 acetaminophen 500 mg Tablet 1,000 mg PO Q8 PRN (Reason: pain/fevers) Qty: 90 RF: 0 oxycodone 5 mg Tablet 5 mg PO Q6H MDD 4 PRN (Reason: pain) Qty: 30 RF: 0 sennosides [Senokot] 8.6 mg Tablet 17.2 mg PO HS PRN (Reason: constipation) Qty: 28 RF: 0 Continued levothyroxine 88 mcg Tablet 88 mcg PO UD RF: 0 famotidine 20 mg Tablet 20 mg PO BID RF: 0 ezetimibe [Zetia] 10 mg Tablet 10 mg PO QAM RF: 0 duloxetine [Cymbalta] 60 mg Capsule,Delayed Release(Dr/Ec) 60 mg PO QAM RF: 0 pregabalin [Lyrica] 50 mg Capsule 50 mg PO BID RF: 0 zolpidem [Ambien CR] 12.5 mg Tablet,Ext Release Multiphase 12.5 mg PO HS RF: 0 [id number] 50-325-40 mg Tablet 1 tab PO Q6H PRN (Reason: Headache) RF: 0 Discontinued acetaminophen [Tylenol Extra Strength] 500 mg Capsule 1,000 mg PO Q8H PRN (Reason: Pain) RF: 0 Discharge Orders: Discharge Order (Routine); Ordered 01/05/21 Ordered By: Baldomero Mason Admission Data Admit Date/Time: 01/04/21 12:50 Attending Provider: Baldomero Mason Admit Provider: Baldomero Mason Primary Care Provider: Vasu Brewster Other Interventions: Discharge Summary Assessment (RN) Last Done: 01/05/21 12:10
== END 2021-01-05 13:23 | disposition home health service (06) | DRG 470 ==
LOC: ASU 08:33 → 3E 08:33 → OBSVTOIN 12:50